=== PATIENT | male | born 1960 | race Caucasian/White ===

== ENCOUNTER → 2020-09-05 | Outpatient (CLI) | payer BC ==
[2020-09-05 15:32] LABS: Basophils # (A) 0.06 X 10*3/uL (0.00-0.10); Eosinophils # (A) 0.18 X 10*3/uL (0.04-0.35); Eosinophils % (A) 2.9 %; HCT 50.2 % (39.6-50.0); HGB 16.6 g/dL (13.0-17.0); Lymphocytes % (A) 27.7 %; MCH 30.8 pg (27.0-32.0); MCHC 33.1 g/dL (32.0-37.0); MCV 93.1 fL (80.0-97.0); Mean Platelet Volume 10.2 fL (9.5-12.2); Monocytes # (A) 0.58 X 10*3/uL (0.20-1.00); Monocytes % (A) 9.4 %; Neutrophils # (A) 3.59 X 10*3/uL (1.80-7.70); Neutrophils % (A) 58.5 %; Platelet Count 271 X 10*3/uL (140-440); RBC 5.39 X 10*6/uL (4.40-5.60); RDW 12.4 % (11.5-14.5); WBC 6.14 X 10*3/uL (4.50-10.00)
[2020-09-05 16:16] LABS: T4, Free (Free Thyroxine) 1.1 ng/dL (0.80-1.80)
[2020-09-05 16:30] LABS: African American GFR (CKD) 94.4 (60.0-200.0); Albumin/Globulin Ratio 2.17 (1.60-3.17); Anion Gap 7.4 mmol/L (4.00-12.00); Calcium 10.3 mg/dL (8.7-10.3); Carbon Dioxide 27.6 mmol/L (21.6-31.8); Chol/HDL Ratio 3.22; Globulin 2.3 g/dL (1.6-3.3); LDL Cholesterol,Calculated 97.2 mg/dL (0.0-131.0); Non-African American GFR(CKD) 81.4 (60.0-200.0); Prostate Specific Antigen 1.8 ng/mL (0.0-4.5); Total Bilirubin 0.7 mg/dL (0.3-1.2); Total Protein 7.3 g/dL (6.2-8.2); VLDL Calculation 22.8 mg/dL (5.00-40.00)
[2020-09-05 17:37] LABS: Hemoglobin A1C 5.8 % (4.0-6.0)
== END | disposition home or self-care (01) ==
LOC: LABWHC1 07:52
PROVIDERS: ATTEND Internal Medicine Geriatric Medicine
DX: E78.2 Mixed hyperlipidemia (principal); I49.8 Other specified cardiac arrhythmias; R79.9 Abnormal finding of blood chemistry, unspecified; N40.0 Benign prostatic hyperplasia without lower urinary tract symptoms; E03.9 Hypothyroidism, unspecified; E55.9 Vitamin D deficiency, unspecified
CPT/HCPCS: 36415; 80053; 80061; 82306; 83036; 84153; 84439; 84443; 85025

== ENCOUNTER 2021-03-29 10:38 | Observation (INO) | payer BC ==
[2021-03-29 11:04] LABS: Glucose,Whole Blood 108 mg/dL (75-99)
[2021-03-29] MEDS ORDERED: SODIUM CHLORIDE 0.9% 500 ML 500 ML IV STA (11:06)
--- NOTE | 2021-03-29 11:20 | ED ---
General Adult HPI - General Chief complaint: Altered Mental Status Stated complaint: Difficulty Remembering Things Time Seen by Provider: 03/29/21 11:00 Source: patient, family, RN notes reviewed, old records reviewed Mode of arrival: ambulatory Limitations: no limitations - History of Present Illness Initial comments: This is a 61-year-old male who presents emergency department because he has lost her short-term memory of the day. The last time he was seen normal was on the phone with his fianc at about 10:00 last night. Patient came to the office today at about 9:00 and according to staff there he was immediately forgetful of all short-term memory. Patient self wasn't aware of this and did not want initially go to the emergency department. Patient denies any headache patient denies chest pain palpitations difficulty breathing first breath per patient denies any numbness or weakness. Patient cannot remember the month but doesn't remember the year. Patient does not remember what he did last evening he does not remember speaking with his physician this morning even though staff indicates that he did. Patient states aside from not being able to remember what was going on recently he feels completely at his baseline. - Related Data Home Medications Medication Instructions Recorded Confirmed Beclomethasone Dipropionate [Qvar 1 puff INHALATION BID PRN 12/02/14 03/29/21 80 mcg/puff] Simvastatin [Zocor] 20 mg PO DAILY 12/02/14 03/29/21 lisinopriL [Prinivil] 20 mg PO DAILY 12/02/14 03/29/21 Allergies Allergy/AdvReac Type Severity Reaction Status Date / Time amoxicillin trihydrate AdvReac Unknown COLITIS Verified 03/29/21 11:39 [From Augmentin] potassium clavulanate AdvReac Unknown COLITIS Verified 03/29/21 11:39 [From Augmentin] Review of Systems ROS Statement: Those systems with pertinent positive or pertinent negative responses have been documented in the HPI. ROS Other: All systems not noted in ROS Statement are negative. Past Medical History Past Medical History: Asthma, Hyperlipidemia, Hypertension Additional Past Medical History / Comment(s): STATES COLITIS WITH AUGMENTIN, HX OF COLON POLYPS., RINGING IN EARS. History of Any Multi-Drug Resistant Organisms: None Reported Past Surgical History: Adenoidectomy, Heart Catheterization, Tonsillectomy Additional Past Surgical History / Comment(s): T & A ( A CHILD), COLONOSCOPY Past Anesthesia/Blood Transfusion Reactions: No Reported Reaction, Motion Sickness Additional Past Anesthesia/Blood Transfusion Reaction / Comment(s): STATES HE WOKE UP DURING TONISLLECTOMY . Past Psychological History: No Psychological Hx Reported Past Alcohol Use History: Occasional Past Drug Use History: None Reported - Past Family History Mother Family Medical History: Cancer Sister(s) Family Medical History: Cancer Additional Family Medical History / Comment(s): LEUKEMIA General Exam - General Exam Comments Initial Comments: GENERAL: Patient is well-developed and well-nourished. Patient is nontoxic and well- hydrated and is in no acute distress. ENT: Neck is soft and supple. No significant lymphadenopathy is noted. Oropharynx is clear. Moist mucous membranes. Neck has full range of motion without eliciting any pain. EYES: The sclera were anicteric and conjunctiva were pink and moist. Extraocular movements were intact and pupils were equal round and reactive to light. Eyelids were unremarkable. PULMONARY: Unlabored respirations. Good breath sounds bilaterally. No audible rales rhonchi or wheezing was noted. CARDIOVASCULAR: There is a regular rate and rhythm without any murmurs gallops or rubs. ABDOMEN: Soft and nontender with normal bowel sounds. SKIN: Skin is clear with no lesions or rashes and otherwise unremarkable. NEUROLOGIC: Patient is alert and oriented 2 patient does not know the month. Cranial nerves II through XII are grossly intact. Motor and sensory are also intact. Normal speech, volume and content. Symmetrical smile. Patient cannot remember what he did this morning or last night. NH is 1 MUSCULOSKELETAL: Normal extremities with adequate strength and full range of motion. No lower extremity swelling or edema. No calf tenderness. LYMPHATICS: No significant lymphadenopathy is noted PSYCHIATRIC: Normal psychiatric evaluation. Limitations: no limitations Course Vital Signs 03/29/21 03/29/21 03/29/21 10:45 10:55 11:00 Temperature 97.9 F Pulse Rate 82 76 71 Respiratory 18 15 16 Rate Blood Pressure 184/103 193/107 O2 Sat by Pulse 96 99 99 Oximetry 03/29/21 03/29/21 03/29/21 11:15 11:20 11:30 Temperature Pulse Rate 75 77 72 Respiratory 16 16 17 Rate Blood Pressure 184/100 178/91 178/91 O2 Sat by Pulse 99 16 L 98 Oximetry 03/29/21 03/29/21 03/29/21 11:45 12:00 12:15 Temperature Pulse Rate 71 70 71 Respiratory 16 11 L 15 Rate Blood Pressure 168/93 168/93 167/90 O2 Sat by Pulse 99 97 99 Oximetry Medical Decision Making - Medical Decision Making EKG shows normal sinus rhythm at 85 bpm VA interval is 168 QRSs 152 QT interval 400 QTC is 476. Patient's EKG shows no ST segment elevation or depression. Patient EKG shows a right bundle branch block I called a code stroke as soon as I saw the patient and determined that his symptoms started within 24 hours of his arrival. I spoke with Dr. Francis he was in agreement and no TPA will be ordered. Patient's CT of the brain shows no acute abnormality. Patient's CTA of the head and neck is normal as well Chest x-ray shows no acute abnormality. I spoke with Dr. Cortez she agreed to admit the patient admitted the patient wrote admitting orders. - Lab Data Result diagrams: 03/29/21 11:07 03/29/21 11:07 Lab Results 03/29/21 03/29/21 03/29/21 Range/Units 11:03 11:07 11:07 WBC 6.7 (3.8-10.6) k/uL RBC 5.25 (4.30-5.90) m/uL Hgb 16.7 (13.0-17.5) gm/dL Hct 49.5 (39.0-53.0) % MCV 94.2 (80.0-100.0) fL MCH 31.8 (25.0-35.0) pg MCHC 33.8 (31.0-37.0) g/dL RDW 12.9 (11.5-15.5) % Plt Count 267 (150-450) k/uL MPV 6.6 Neutrophils % 73 % Lymphocytes % 16 % Monocytes % 6 % Eosinophils % 1 % Basophils % 1 % Neutrophils # 4.9 (1.3-7.7) k/uL Lymphocytes # 1.1 (1.0-4.8) k/uL Monocytes # 0.4 (0-1.0) k/uL Eosinophils # 0.1 (0-0.7) k/uL Basophils # 0.1 (0-0.2) k/uL PT 10.3 (9.0-12.0) sec INR 1.0 (<1.2) APTT 23.5 (22.0-30.0) sec Sodium (137-145) mmol/L Potassium (3.5-5.1) mmol/L Chloride (98-107) mmol/L Carbon Dioxide (22-30) mmol/L Anion Gap mmol/L BUN (9-20) mg/dL Creatinine (0.66-1.25) mg/dL Est GFR (CKD-EPI)AfAm (>60 ml/min/1.73 sqM) Est GFR (CKD-EPI)NonAf (>60 ml/min/1.73 sqM) Glucose (74-99) mg/dL POC Glucose (mg/dL) 108 H (75-99) mg/dL POC Glu Respiratory Clinician ID Remington Maza Calcium (8.4-10.2) mg/dL Total Bilirubin (0.2-1.3) mg/dL AST (17-59) U/L ALT (4-49) U/L Alkaline Phosphatase (38-126) U/L Troponin I (0.000-0.034) ng/mL Total Protein (6.3-8.2) g/dL Albumin (3.5-5.0) g/dL 03/29/21 03/29/21 Range/Units 11:07 11:07 WBC (3.8-10.6) k/uL RBC (4.30-5.90) m/uL Hgb (13.0-17.5) gm/dL Hct (39.0-53.0) % MCV (80.0-100.0) fL MCH (25.0-35.0) pg MCHC (31.0-37.0) g/dL RDW (11.5-15.5) % Plt Count (150-450) k/uL MPV Neutrophils % % Lymphocytes % % Monocytes % % Eosinophils % % Basophils % % Neutrophils # (1.3-7.7) k/uL Lymphocytes # (1.0-4.8) k/uL Monocytes # (0-1.0) k/uL Eosinophils # (0-0.7) k/uL Basophils # (0-0.2) k/uL PT (9.0-12.0) sec INR (<1.2) APTT (22.0-30.0) sec Sodium 141 (137-145) mmol/L Potassium 4.5 (3.5-5.1) mmol/L Chloride 109 H (98-107) mmol/L Carbon Dioxide 23 (22-30) mmol/L Anion Gap 9 mmol/L BUN 16 (9-20) mg/dL Creatinine 1.00 (0.66-1.25) mg/dL Est GFR (CKD-EPI)AfAm >90 (>60 ml/min/1.73 sqM) Est GFR (CKD-EPI)NonAf 81 (>60 ml/min/1.73 sqM) Glucose 114 H (74-99) mg/dL POC Glucose (mg/dL) (75-99) mg/dL POC Glu Respiratory Clinician ID Calcium 10.7 H (8.4-10.2) mg/dL Total Bilirubin 0.6 (0.2-1.3) mg/dL AST 42 (17-59) U/L ALT 51 H (4-49) U/L Alkaline Phosphatase 86 (38-126) U/L Troponin I <0.012 (0.000-0.034) ng/mL Total Protein 7.6 (6.3-8.2) g/dL Albumin 4.7 (3.5-5.0) g/dL Critical Care Time Critical Care Time: Yes Total Critical Care Time: 35 Disposition Clinical Impression: Transient global amnesia, CVA (cerebral vascular accident) Disposition: ADMITTED IP TO THIS [facility] Referrals: Jus Unger MD [Primary Care Provider] - 1-2 days Time of Disposition: 13:39
--- NOTE | 2021-03-29 11:23 | CT ---
EXAMINATION TYPE: CT brain wo con for TPA DATE OF EXAM: 03/29/2021 COMPARISON: None HISTORY: confusion CT DLP: 1183.[address] of the brain was performed. The ventricles, basal cisterns and sulci overlying the cerebral convexities demonstrate mild enlargem ent. There is no evidence for intracranial hemorrhage or sulcal effacement. There is decreased attenuation about the periventricular white matter and deep white matter of both c erebral hemispheres, compatible with chronic small vessel ischemia. Differential diagnosis does inclu de demyelination. No mass effects are seen.No midline shift. Osseous calvarium is intact. If symptoms persist consider MRI. IMPRESSION: 1. Age related atrophic and chronic small vessel ischemic change without acute intracranial process s een at this time.
[2021-03-29 11:31] LABS: Basophils # (A) 0.1 k/uL (0-0.2); Basophils % (A) 1 %; Eosinophils # (A) 0.1 k/uL (0-0.7); Eosinophils % (A) 1 %; HCT 49.5 % (39.0-53.0); HGB 16.7 gm/dL (13.0-17.5); Lymphocytes # (A) 1.1 k/uL (1.0-4.8); Lymphocytes % (A) 16 %; MCH 31.8 pg (25.0-35.0); MCHC 33.8 g/dL (31.0-37.0); MCV 94.2 fL (80.0-100.0); Mean Platelet Volume 6.6; Monocytes # (A) 0.4 k/uL (0-1.0); Monocytes % (A) 6 %; Neutrophils # (A) 4.9 k/uL (1.3-7.7); Neutrophils % (A) 73 %; Platelet Count 267 k/uL (150-450); RBC 5.25 m/uL (4.30-5.90); RDW 12.9 % (11.5-15.5); WBC 6.7 k/uL (3.8-10.6)
[2021-03-29 11:40] LABS: ALT 51 U/L (4-49); AST 42 U/L (17-59); African American GFR (CKD) >90 (>60 ml/min/1.73 sqM); Albumin 4.7 g/dL (3.5-5.0); Alkaline Phosphatase 86 U/L (38-126); Anion Gap 9 mmol/L; Blood Urea Nitrogen 16 mg/dL (9-20); Calcium 10.7 mg/dL (8.4-10.2); Carbon Dioxide 23 mmol/L (22-30); Chloride 109 mmol/L (98-107); Glucose 114 mg/dL (74-99); Non-African American GFR(CKD) 81 (>60 ml/min/1.73 sqM); Potassium 4.5 mmol/L (3.5-5.1); Sodium 141 mmol/L (137-145); Total Bilirubin 0.6 mg/dL (0.2-1.3); Total Protein 7.6 g/dL (6.3-8.2)
[2021-03-29 11:52] LABS: Partial Thromboplastin Time 23.5 sec (22.0-30.0); Prothrombin Time 10.3 sec (9.0-12.0)
--- NOTE | 2021-03-29 12:41 | CT ---
EXAMINATION TYPE: CT angio head neck DATE OF EXAM: 03/29/2021 COMPARISON: CT brain same day HISTORY: 61-year-old male Confusion TECHNIQUE: Contiguous axial scanning of the had a neck performed with IV Contrast, patient injected w ith 65 mL of Isovue 370. Coronal/sagittal MIP reconstructions performed. 3-D reconstructions generate d on a dedicated independent workstation. CT DLP: 549.9 mGycm Automated exposure control for dose reduction was used. FINDINGS: Neck: Bovine configuration to the aortic arch. The vertebral artery origins are patent. The vessels are codominant and patent throughout their cours e. The right common and right internal carotid arteries are patent. The left common and left internal carotid arteries are widely patent. NASCET criteria was utilized. Incidental prominent 9 mm left-sided suboccipital lymph node probably reactive. Head: The vertebral and basilar arteries are patent as is the remainder of the posterior circulation. The internal carotid arteries and remainder of the anterior circulation. The dural venous sinuses are patent. IMPRESSION: 1. NECK: WIDELY PATENT VERTEBRAL AND CAROTID ARTERIES OF THE NECK. 2. HEAD: NO LARGE VESSEL INTRACRANIAL ARTERIAL OCCLUSION, SIGNIFICANT STENOSIS, OR ANEURYSMAL CHANGE IS SEEN.
[2021-03-29] MEDS ORDERED: FLUTICASONE 110 MCG INHALER INHALATION PRN (13:38)
--- NOTE | 2021-03-29 16:56 | P.HPIM ---
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 The staff got worried and called his girlfriend who asked the patient to come to the hospital. Patient did not want to go to the hospital and thought he was doing okay. He was brought in to the hospital and was found to have no recall of the events that made him come to the hospital. Patient was last normal at 10 PM in the night when he had a conversation with his fiance. code stroke was called Patient Code stroke was called but since the events started within 24 hours of arrival, no TPA was indicated. Chest x-ray was negative for acute abnormality. Labs were reviewed, CBC suggestive WBC of 6.7 hemoglobin 16.7 sodium 141 potassium 4.5 chloride 109 BUN 16 creatinine 1.0 glucose 114. Vitals reviewed patient is a afebrile, pulse 72 respiratory rate 17 and blood pressure 178/91 oxygen saturation 99% on room air . CT head and CT angiogram was negative for any acute abnormality Patient was evaluated in the ER with girlfriend at bedside. Patient is having normal conversation but has no recall how he came to the ER and if he had underwent any imaging. Patient could not recall the month or the year. Speech is clear. He denies any facial drooping denies any numbness or tingling in the lower extremities. Patient denies any previous episodes. He denies any seizure-like activity. Patient denies any new activity. Denies any recent activity in the pool or [place]. He denies any neck stiffness or tremors. Patient denies any family history of neurological disorders. He denies any history of stroke in the past. Denies any history of seizures in the past. Denies any fever or chills. Denies any insect bite or camping outside. Patient has been taking nicotinamide 300 mg a day for the past 2 years with no side effects. He denies any change in his medication lately. Neurology is consulted. EEG is ordered. ROS Constitutional: Denies chills, Denies fever, Denies lethargy, Denies malaise, Denies poor appetite, Denies weakness, Denies weight loss Eyes: denies decreased vision, denies diplopia, denies discharge, denies pain Ears: deny: decreased hearing Ears, nose, mouth and throat: Denies dental pain, Denies headache, Denies nasal discharge, Denies nose pain Cardiovascular: Denies chest pain, Denies decreased exercise tolerance, Denies edema, Denies high blood pressure, Denies irregular heart beat, Denies palpitations, Denies paroxysmal nocturnal dyspnea, Denies rapid heart beat, Denies shortness of breath Respiratory: Denies congestion, Denies cough, Denies cough with sputum, Denies dyspnea, Denies home oxygen, Denies wheezing Gastrointestinal: Denies abdominal pain, Denies change in bowel habits, Denies coffee ground emesis, Denies early satiety, Denies excessive gas, Denies heartburn, Denies hematemesis, Denies hematochezia, Denies loss of appetite, Denies nausea, Denies vomiting Genitourinary: Denies dysuria, Denies flank pain, Denies kidney stones, Denies menorrhagia, Denies urgency, Denies urinary frequency Musculoskeletal: Denies gait dysfunction, Denies limitation of motion, Denies morning stiffness, Denies muscle cramps Integumentary: Denies rash, Denies wounds, Denies brittle nails, Denies change in hair/nails, Denies darkening of skin Neurological: Denies balance difficulties, Denies change in speech, Denies double vision, Denies gait dysfunction, Denies loss of vision, Denies motor disturbance, Denies numbness, Denies paralysis, Denies paresthesias, Denies seizures Psychiatric: Denies anxiety, Denies depression Endocrine: Denies excessive sweating, Denies excessive thirst, Denies high blood sugars, Denies palpitations Hematologic/Lymphatic: Denies easy bruising, Denies lymphadenopathy Social history Patient lives by himself. Nonsmoker. Nondrinker no marijuana abuse Family history Father from renal failure 3-4 years ago Mother - breast cancer in 89 years old Has no brother One sister has CML requiring bone marrow transplantation Another sister no medical problem No children Physical exam - Constitutional General appearance: cooperative, no acute distress, appears stated age - EENT Eyes: anicteric sclerae, PERRLA, normal appearance no nystagmus ENT: hearing grossly normal - Neck Neck: no lymphadenopathy, normal ROM, no other, no rigidity, no stridor, no thyromegaly - Respiratory Respiratory: bilateral: CTA, negative: diminished, dullness, rales, rhonchi - Cardiovascular Rhythm: regular Heart sounds: normal: S1, S2 Abnormal Heart Sounds: no systolic murmur, no diastolic murmur, no rub, no S3 Gallop, no S4 Gallop, no click, no other - Gastrointestinal General gastrointestinal: normal bowel sounds, soft nontender - Integumentary Integumentary: no rash - Neurologic Neurologic: CNII-XII intact no sensory or motor deficit noted [id number] test negative - Musculoskeletal Musculoskeletal: gait not assessed, strength equal bilaterally - Psychiatric Psychiatric: A&O x's 3, appropriate affect Assessment and plan #1 transient global amnesia with metabolic encephalopathy. EEG ordered. CT head and CT angiogram head and neck was negative for acute abnormality. MRI ordered to rule out embolic stroke. Echo with bubble study ordered. Continue telemetry. We will start patient on aspirin and Lipitor neurology consulted. B12, folic acid, HbA1c ordered #2 asthma controlled on Qvar #3 hypertension continue lisinopril 20 mg by mouth daily. Blood pressure is high we will start patient's home medication and adjust if needed. Follow low cholesterol low salt diet. Heart healthy diet #4 hyperlipidemia. Zocor switched to atorvastatin 40 mg by mouth daily #5 code status full code #6 DVT prophylaxis with heparin every 12 #7 disposition patient need 1-2 inpatient nights for stabilization Past Medical History Past Medical History: Asthma, Hyperlipidemia, Hypertension Additional Past Medical History / Comment(s): STATES COLITIS WITH AUGMENTIN, HX OF COLON POLYPS., RINGING IN EARS. History of Any Multi-Drug Resistant Organisms: None Reported Past Surgical History: Adenoidectomy, Heart Catheterization, Tonsillectomy Additional Past Surgical History / Comment(s): T & A ( A CHILD), COLONOSCOPY Past Anesthesia/Blood Transfusion Reactions: No Reported Reaction, Motion Sickness Additional Past Anesthesia/Blood Transfusion Reaction / Comment(s): STATES HE WOKE UP DURING TONISLLECTOMY . Past Psychological History: No Psychological Hx Reported Smoking Status: Never smoker Past Alcohol Use History: Occasional Past Drug Use History: None Reported - Past Family History Mother Family Medical History: Cancer Sister(s) Family Medical History: Cancer Additional Family Medical History / Comment(s): LEUKEMIA Medications and Allergies Home Medications Medication Instructions Recorded Confirmed Type Beclomethasone Dipropionate [Qvar 1 puff INHALATION BID PRN 12/02/14 03/29/21 History 80 mcg/puff] Simvastatin [Zocor] 20 mg PO DAILY 12/02/14 03/29/21 History lisinopriL [Prinivil] 20 mg PO DAILY 12/02/14 03/29/21 History Allergies Allergy/AdvReac Type Severity Reaction Status Date / Time amoxicillin trihydrate AdvReac Unknown COLITIS Verified 03/29/21 11:39 [From Augmentin] potassium clavulanate AdvReac Unknown COLITIS Verified 03/29/21 11:39 [From Augmentin] Physical Exam Vitals: Vital Signs Temp Pulse Pulse Resp BP BP Pulse Ox 03/29/21 15:41 97.9 F 70 18 163/99 97 03/29/21 12:15 71 15 167/90 99 03/29/21 12:00 70 11 L 168/93 97 03/29/21 11:45 71 16 168/93 99 03/29/21 11:30 72 17 178/91 98 03/29/21 11:20 77 16 178/91 16 L 03/29/21 11:15 75 16 184/100 99 03/29/21 11:00 71 16 193/107 99 03/29/21 10:55 76 15 99 03/29/21 10:45 97.9 F 82 18 184/103 96 Intake and Output 03/29/21 03/29/21 03/29/21 06:59 14:59 22:59 Other: Weight 92.986 kg Results CBC & Chem 7: 03/29/21 11:07 03/29/21 11:07 Labs: Abnormal Lab Results - Last 24 Hours (Table) 03/29/21 03/29/21 Range/Units 11:03 11:07 Chloride 109 H (98-107) mmol/L Glucose 114 H (74-99) mg/dL POC Glucose (mg/dL) 108 H (75-99) mg/dL Calcium 10.7 H (8.4-10.2) mg/dL ALT 51 H (4-49) U/L Thrombosis Risk Factor Assmnt - Choose All That Apply Each Risk Factor Represents 2 Points: Age 61-74 years Thrombosis Risk Factor Assessment Total Risk Factor Score: 2 Thrombosis Risk Factor Assessment Level: Low Risk
[2021-03-29] MEDS: lisinopriL 20 MG TAB PO SCH (17:37)
[2021-03-29] MEDS: ATORVASTATIN 40 MG TAB PO SCH (17:37)
[2021-03-29] MEDS: ASPIRIN 81 MG PO SCH (17:37)
--- NOTE | 2021-03-29 22:00 | MR ---
EXAMINATION TYPE: MR brain wo/w con DATE OF EXAM: 03/29/2021 COMPARISON: CT brain 03/29/2021 HISTORY: Transient global amnesia. TECHNIQUE: Multiplanar, multisequence images of the brain and brainstem is performed without and with IV contras t, utilizing 9 mL intravenous Gadavist . FINDINGS: Diffusion weighted images demonstrate no evidence of a recent infarct or other diffusion ab normality. There is no extra-axial fluid collection or significant white matter signal abnormality. The ventricular system and cisternal spaces are normal in size and appearance. The brain volume is age appropriate. Midline structures demonstrate normal morphology. The craniocervical junction appears within normal limits. Post contrast images demonstrate no abnormal enhancement. The dural venous sinuses appear pa tent. Globes are grossly symmetric. Mucosal retention cyst versus polyp in the right maxillary sinus. There is mild fluid in the right mastoid air cells. IMPRESSION: No acute infarction or intracranial mass.
[2021-03-30 03:18] LABS: Hemoglobin A1C 5.7 % (4.0-6.0)
[2021-03-30 04:05] LABS: Folate, Serum >24.0 ng/mL
--- NOTE | 2021-03-30 07:25 | ECHOF ---
Referral Reason:with bubble study MEASUREMENTS -------- HEIGHT: 177.8 cm WEIGHT: 93.0 kg BP: IVSd: 1.2 cm (0.6 - 1.1) LVIDd: 5.0 cm (3.9 - 5.3) LVPWd: 1.4 cm (0.6 - 1.1) IVSs: 1.9 cm LVIDs: 1.8 cm LVPWs: 1.8 cm Ao Diam: 3.2 cm (2.0 - 3.7) AV Cusp: 1.8 cm (1.5 - 2.6) LA Diam: 2.5 cm (2.7 - 3.8) MV EXCURSION: 15.243 mm (> 18.000) MV EF SLOPE: 47 mm/s (70 - 150) EPSS: 1.2 cm MV E Jd: 0.44 m/s MV DecT: 271 ms MV A Jd: 0.63 m/s MV E/A Ratio: 0.71 AV maxP.66 mmHg AV meanP.52 mmHg RAP: 5.00 mmHg RVSP: 8.32 mmHg FINDINGS -------- This was a technically difficult study with suboptimal views. The left ventricular size is normal. Left ventricular wall thickness is normal. Overall left vent ricular systolic function is normal with, an EF between 55 - 60 %. The right ventricle is normal in size. The left atrial size is normal. The right atrial size is normal. 5.0mg of Lumason was utilized for enhancement of images IAS not well Visualized. Bubble study not performed, poor images The aortic valve is trileaflet and appears structurally normal. The mitral valve is normal. There is trace mitral regurgitation. The tricuspid valve appears structurally normal. Trace tricuspid regurgitation present. Right [place]ver tricular systolic pressure is normal at < 35 mmHg. There is no pulmonic regurgitation present. The aortic root size is normal. IVC Not well visulized. There is no pericardial effusion. CONCLUSIONS -------- 1. The left ventricular size is normal. 2. Left ventricular wall thickness is normal. 3. Overall left ventricular systolic function is normal with, an EF between 55 - 60 %. 4. There is trace mitral regurgitation. 5. Trace tricuspid regurgitation present. 6. There is no pericardial effusion. PLUMBERS AND TOP HELPERS: Sharon Callahan [facility]
[2021-03-30] MEDS: ASPIRIN 81 MG PO SCH (08:22)
[2021-03-30] MEDS: lisinopriL 20 MG TAB PO SCH (08:23)
[2021-03-30] MEDS: ATORVASTATIN 40 MG TAB PO SCH ×2 (08:23→08:25)
[2021-03-30] MEDS ORDERED: lisinopriL 20 MG TAB PO SCH (09:00)
[2021-03-30] MEDS ORDERED: CYANOCOBALAMIN 1,000 MCG/ML 1 ML VIAL IM ONE ×2 (09:27→11:45)
--- NOTE | 2021-03-30 09:29 | P.CNNES ---
History of Present Illness Consult date: 03/29/21 Requesting physician: Ceferino Rubin Reason for Consult: CVA versus transient global amnesia History of Present Illness: Patient is a 61-year-old male came to the hospital today at 10:38 AM for memory loss. History provided by the patient as well as his significant other, who was also present today. Patient states that he remembers driving to work at 7:30 AM this morning and then he does not remember what happens next until he became aware that he was in the ER. This is about 3 hours of loss of memory. As per report from patient's workplace, he came in work, seems confused. 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 Later he did not remember seeing that. He asked probably 50 times more day it was in the date. He had no memory of the time he had spent with his significant other over the weekend. He could not remember the date or the month. 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 Patient's coworker brought him to the ER. Patient did not have any slurred speech facial droop, headache subsequently. Patient's vital signs on arrival blood pressure 184/103, pulse rate 82, temperature 97.9. Patient's blood pressure has been running high 178/91. CT head showed age-related atrophic and chronic small vessel ischemic change without acute intracranial process seen at this time. CTA of the neck shows widely patent vertebral and carotid arteries of the neck. CTA of the head showed no large vessel intracranial arterial occlusion, significant stenosis or aneurysmal change. EKG shows normal sinus rhythm. Right bundle branch block. Blood test shows normal CBC, PT/PTT, normal Chem-7. AST is 42, ALT is 51. Troponin is negative. Thyroid functions are normal as of 09/05/2020. Patient's lipid panel with cholesterol 174, LDL 97.2, HDL 54 and triglycerides 114. Hemoglobin A1c 5.8 on 09/05/2020. Patient's home medications include Zocor 20 mg, lisinopril 20 mg. Patient has history of hypertension since 1994, denies diabetes or tobacco use. He drinks wine once in a while. Not a heavy drinker. Patient apparently has migraines, as he gets migraines periodically, which are very severe, and he usually can feel it coming on and he takes ibuprofen at headache onset. If he does not take ibuprofen early on, he gets a full-blown headache with nausea. He has not had migraine for last 3-4 weeks. He never has any history of migraine aura. Review of Systems Completely unremarkable. No chest pain shortness of breath wheezing or cough. Denies any nausea vomiting diarrhea. Denies any problem with the vision, hoarseness, sore throat, dysphagia, rash. No weight loss. No fever or chills. No vertigo. Patient does have mild memory disturbance sometimes, as he repeats. All other 14 point of review of systems unremarkable. Past Medical History Past Medical History: Asthma, Hyperlipidemia, Hypertension Additional Past Medical History / Comment(s): STATES COLITIS WITH AUGMENTIN, HX OF COLON POLYPS., RINGING IN EARS. History of Any Multi-Drug Resistant Organisms: None Reported Past Surgical History: Adenoidectomy, Heart Catheterization, Tonsillectomy Additional Past Surgical History / Comment(s): T & A ( A CHILD), COLONOSCOPY Past Anesthesia/Blood Transfusion Reactions: No Reported Reaction, Motion Sickness Additional Past Anesthesia/Blood Transfusion Reaction / Comment(s): STATES HE WOKE UP DURING TONISLLECTOMY . Past Psychological History: No Psychological Hx Reported Smoking Status: Never smoker Past Alcohol Use History: Occasional Past Drug Use History: None Reported - Past Family History Mother Family Medical History: Cancer Sister(s) Family Medical History: Cancer Additional Family Medical History / Comment(s): LEUKEMIA Medications and Allergies Home Medications Medication Instructions Recorded Confirmed Type Beclomethasone Dipropionate [Qvar 1 puff INHALATION BID PRN 12/02/14 03/29/21 History 80 mcg/puff] Simvastatin [Zocor] 20 mg PO DAILY 12/02/14 03/29/21 History lisinopriL [Prinivil] 20 mg PO DAILY 12/02/14 03/29/21 History Allergies Allergy/AdvReac Type Severity Reaction Status Date / Time amoxicillin trihydrate AdvReac Unknown COLITIS Verified 03/29/21 11:39 [From Augmentin] potassium clavulanate AdvReac Unknown COLITIS Verified 03/29/21 11:39 [From Augmentin] Physical Examination - Vital Signs Vital Signs: Vital Signs Temp Pulse Pulse Resp BP BP Pulse Ox 03/29/21 15:41 97.9 F 70 18 163/99 97 03/29/21 12:15 71 15 167/90 99 03/29/21 12:00 70 11 L 168/93 97 03/29/21 11:45 71 16 168/93 99 03/29/21 11:30 72 17 178/91 98 03/29/21 11:20 77 16 178/91 16 L 03/29/21 11:15 75 16 184/100 99 03/29/21 11:00 71 16 193/107 99 03/29/21 10:55 76 15 99 03/29/21 10:45 97.9 F 82 18 184/103 96 Intake and Output 03/29/21 03/29/21 03/29/21 06:59 14:59 22:59 Other: Weight 92.986 kg Patient is a middle aged occasion male, in no acute distress. Patient is alert awake well oriented, except for the date, as he thought it was March 12 and the year is 2020. He knows the day of the week the season and that he is in [facility] in [place]. Speech and language functions are normal. Patient can name and repeat. No aphasia or dysarthria. Attention, concentration and fund of knowledge is adequate. On cranial examination, pupils are round and reacting to light, visual landry are full on confrontation, extraocular muscles are intact with no nystagmus. Face is symmetric, tongue protrudes to the midline. Palatal elevation and sensation normal, hearing and shoulder shrug normal, facial sensation normal. Shoulder shrug normal. On muscle strength testing, there is no pronator drift and the strength is normal in arms and legs distally and proximally. Deep tendon reflexes are 1+ to 2+ and plantars downgoing. Sensory to touch is equal with no neglect. Cerebellar function showed no ataxia for [id number] testing. No dysdiadochokinesia. Tone and bulk of muscles normal. Gait normal. On general examination, there is no carotid bruit or murmur, S1-S2 audible. Abdomen is soft nontender. Chest is clear. Peripheral pulses are present. Mild peripheral edema. Results - Laboratory Findings CBC and BMP: 03/29/21 11:07 03/29/21 11:07 Abnormal Lab Findings: Abnormal Labs 03/29/21 03/29/21 11:03 11:07 Chloride 109 H Glucose 114 H POC Glucose (mg/dL) 108 H Calcium 10.7 H ALT 51 H Assessment and Plan Assessment: * Transient global amnesia. Patient's memory loss lasted for about 3 hours. Patient back to baseline. * Hypertension, not well controlled * Hyperlipidemia Plan: * Patient underwent MRI of the brain with and without contrast, which is normal. No acute process, no CVA. * 2-D echo showed normal left-ventricular size, normal left-ventricular wall thickness, EF is between 55-60%. Trace MR. Suggest checking bubble study, rule out PFO. * We will check EEG to rule out epileptiform activity. * CTA of head and neck is normal. * Hemoglobin A1c 5.7, check lipid panel. * We will check B12, folate. TSH is normal 2.19 on 09/05/2020. * Continue Zocor 20 mg. Start aspirin 81 mg daily. * Aggressive control of blood pressure to target blood pressure <130/80. * Telemetry monitoring to rule out arrhythmia * We will follow clinically.
[2021-03-30 12:50] LABS: Chol/HDL Ratio 4.86; LDL Cholesterol,Calculated 126.6 mg/dL (0.0-131.0); VLDL Calculation 35.4 mg/dL (5.00-40.00)
--- NOTE | 2021-03-30 13:33 | CONS ---
CONSULTATION CHIEF COMPLAINT: CVA. Rule out cardiac source of thromboembolic phenomenon. Rudi is a 61-year-old gentleman with history of hypertension and dyslipidemia who presented to the emergency room with transient loss of memory that lasted for about 4 hours. 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 Gradually his memory has normalized. He underwent extensive workup, including CT scan, CTA, MRI, and the workup is benign and unremarkable. EKG showed sinus rhythm with right bundle branch block. He had an echocardiogram that was technically suboptimal, but the LV function and wall motion were normal. They could not do a bubble study because of the technically suboptimal study. So I have been asked to perform a transesophageal echo. At the time of my evaluation this morning, patient appears comfortable at rest. He seems alert, oriented and intelligent and his memory seems to have normalized. PAST MEDICAL HISTORY: Significant for hypertension and dyslipidemia. MEDICATIONS: Medications include Prinivil 20 daily, Zocor 20 daily, Qvar. ALLERGIES: AUGMENTIN. FAMILY HISTORY: Negative for premature coronary artery disease. SOCIAL HISTORY: Negative for current smoking, EtOH abuse or drug abuse. REVIEW OF SYSTEMS: HEENT is unremarkable. CARDIAC: As described above. RESPIRATORY: Negative. GI: Negative. GENITOURINARY: Negative. ALLERGY/IMMUNOLOGY: Negative. SKIN: Negative. MUSCULOSKELETAL: Negative. ENDOCRINE: Negative. DERMATOLOGY: Negative. CONSTITUTIONAL: Significant for confusion. PSYCHOSOCIAL: Negative. Rest of the system review is not relevant. PHYSICAL EXAMINATION: Comfortable at rest. Afebrile. Heart rate is 60 beats per minute, blood pressure is 143/73, respiratory rate 18. There is no jugular venous distention. Carotid upstroke is normal. There is no bruit. Chest exam reveals good air entry bilaterally. Heart exam reveals first and second heart sounds. No gallop. No murmur. No rub. Abdomen is soft, nontender. Examination of extremities did not reveal any edema. Peripheral pulses are felt. ASSESSMENT: 1. Cerebrovascular accident versus transient global amnesia. Rule out cardiac source of thromboembolic phenomenon. 2. Hypertension. 3. Dyslipidemia. PLAN: I am going to perform a transesophageal echo on him to rule out intracardiac thrombus and shunting across the interatrial septum. MMODL / IJN: [id number] /
--- NOTE | 2021-03-30 13:50 | P.PN ---
Subjective Progress Note Date: 03/30/21 61 years old male patient of Dr. 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 The staff got worried and called his girlfriend who asked the patient to come to the hospital. Patient did not want to go to the hospital and thought he was doing okay. He was brought in to the hospital and was found to have no recall of the events that made him come to the hospital. Patient was last normal at 10 PM in the night when he had a conversation with his fiance. code stroke was called Patient Code stroke was called but since the events started within 24 hours of arrival, no TPA was indicated. Chest x-ray was negative for acute abnormality. Labs were reviewed, CBC suggestive WBC of 6.7 hemoglobin 16.7 sodium 141 potassium 4.5 chloride 109 BUN 16 creatinine 1.0 glucose 114. Vitals reviewed patient is a afebrile, pulse 72 respiratory rate 17 and blood pressure 178/91 oxygen saturation 99% on room air . CT head and CT angiogram was negative for any acute abnormality Patient was evaluated in the ER with girlfriend at bedside. Patient is having normal conversation but has no recall how he came to the ER and if he had underwent any imaging. Patient could not recall the month or the year. Speech is clear. He denies any facial drooping denies any numbness or tingling in the lower extremities. Patient denies any previous episodes. He denies any seizure-like activity. Patient denies any new activity. Denies any recent activity in the pool or [place]. He denies any neck stiffness or tremors. Patient denies any family history of neurological disorders. He denies any history of stroke in the past. Denies any history of seizures in the past. Denies any fever or chills. Denies any insect bite or camping outside. Patient has been taking nicotinamide 300 mg a day for the past 2 years with no side effects. He denies any change in his medication lately. Neurology is consulted. EEG is ordered. 03/30 patient examined bedside. He denies any new symptoms. Patient slept well overnight. He has some blurry vision and some gritty feeling in his eyes. Patient denies any numbness or tingling in his upper and lower extremity. Sher ry is good. He does have history of migraines that affect him every 3-4 months for which patient takes 800 mg of Motrin to help resolve the pain but he denies any recent migraine attacks. Would recommend switching lisinopril to metoprolol succinate for blood pressure control. Patient denies any chest pain or shortness of breath. He is continued on Zocor, neurology and started on aspirin. MRI reviewed. No acute intracranial process noted. Echocardiogram was reviewed was negative for any valvular or wall abnormality EF reported to be 55-60%. Bubble study could not be performed. Cardiology consulted for possible BRENNAN. EEG pending ROS Constitutional: Denies chills, Denies fever, Denies lethargy, Denies malaise, Denies poor appetite, Denies weakness, Denies weight loss Eyes: denies decreased vision, denies diplopia, denies discharge, denies pain Ears: deny: decreased hearing Ears, nose, mouth and throat: Denies dental pain, Denies headache, Denies nasal discharge, Denies nose pain Cardiovascular: Denies chest pain, Denies decreased exercise tolerance, Denies edema, Denies high blood pressure, Denies irregular heart beat, Denies palpitations, Denies paroxysmal nocturnal dyspnea, Denies rapid heart beat, Denies shortness of breath Respiratory: Denies congestion, Denies cough, Denies cough with sputum, Denies dyspnea, Denies home oxygen, Denies wheezing Gastrointestinal: Denies abdominal pain, Denies change in bowel habits, Denies coffee ground emesis, Denies early satiety, Denies excessive gas, Denies heartburn, Denies hematemesis, Denies hematochezia, Denies loss of appetite, Denies nausea, Denies vomiting Genitourinary: Denies dysuria, Denies flank pain, Denies kidney stones, Denies menorrhagia, Denies urgency, Denies urinary frequency Musculoskeletal: Denies gait dysfunction, Denies limitation of motion, Denies morning stiffness, Denies muscle cramps Integumentary: Denies rash, Denies wounds, Denies brittle nails, Denies change in hair/nails, Denies darkening of skin Neurological: Denies balance difficulties, Denies change in speech, Denies double vision, Denies gait dysfunction, Denies loss of vision, Denies motor disturbance, Denies numbness, Denies paralysis, Denies paresthesias, Denies seizures denies any new short-term memory loss Psychiatric: Denies anxiety, Denies depression Endocrine: Denies excessive sweating, Denies excessive thirst, Denies high blood sugars, Denies palpitations Hematologic/Lymphatic: Denies easy bruising, Denies lymphadenopathy Physical exam - Constitutional General appearance: cooperative, no acute distress, appears stated age - EENT Eyes: anicteric sclerae, PERRLA, normal appearance no nystagmus ENT: hearing grossly normal - Neck Neck: no lymphadenopathy, normal ROM, no other, no rigidity, no stridor, no thyr omegaly - Respiratory Respiratory: bilateral: CTA, negative: diminished, dullness, rales, rhonchi - Cardiovascular Rhythm: regular Heart sounds: normal: S1, S2 Abnormal Heart Sounds: no systolic murmur, no diastolic murmur, no rub, no S3 Gallop, no S4 Gallop, no click, no other - Gastrointestinal General gastrointestinal: normal bowel sounds, soft nontender - Integumentary Integumentary: no rash - Neurologic Neurologic: CNII-XII intact no sensory or motor deficit noted [id number] test negative - Musculoskeletal Musculoskeletal: gait normal , strength equal bilaterally - Psychiatric Psychiatric: A&O x's 3, appropriate affect Assessment and plan #1 transient global amnesia with metabolic encephalopathy. EEG ordered. CT head and CT angiogram head and neck was negative for acute abnormality. MRI ordered negative for acute stroke Echo with bubble study was negative but bubble study could not be determined Continue telemetry. Continueon aspirin and Lipitor switched to Zocor. neurology consulted. B12 was low. Transient global amnesia is associated with migraines and hyperlipidemia. For BRENNAN tomorrow. Plan for EEG to #2 asthma controlled on Qvar #3 HTN - hold lisinopril 20 mg by mouth daily. Would recommend switching to metoprolol for benefit on migraines Follow low cholesterol low salt diet. Heart healthy diet #4 hyperlipidemia. Continue Zocor 20 mg by mouth daily #5 code status full code #6 DVT prophylaxis with heparin every 12 Objective - Vital Signs Vital signs: Vital Signs Temp 97.9 F 03/30/21 11:47 Pulse 64 03/30/21 11:47 Resp 18 03/30/21 11:47 BP 143/73 03/30/21 11:47 Pulse Ox 95 03/30/21 11:47 Intake & Output 03/29/21 03/30/21 03/30/21 18:59 06:59 18:59 Weight 92.986 kg 94.347 kg Other: Voiding Method Toilet # Voids 1 - Labs CBC & Chem 7: 03/29/21 11:07 03/29/21 11:07 Labs: Abnormal Lab Results - Last 24 Hours (Table) 03/30/21 Range/Units 07:33 Triglycerides 177.0 H (0.0-149.0) mg/dL Cholesterol 204 H (0-200) mg/dL
--- NOTE | 2021-03-30 15:24 | XR ---
EXAMINATION TYPE: XR chest 2V DATE OF EXAM: 03/29/2021 COMPARISON: NONE HISTORY: Shortness of breath TECHNIQUE: Frontal and lateral views of the chest are obtained. FINDINGS: Scattered senescent parenchymal changes noted. Hyperinflation compatible with COPD. No evidence for infiltrate. No evidence for atelectasis. Heart size is stable. Mediastinal structures are stable and grossly unremarkable. No evidence for hilar prominence. Degenerative changes dorsal spine. IMPRESSION: 1. No evidence for acute pulmonary disease.
[2021-03-30] MEDS ORDERED: METOPROLOL SUCCINATE (ER) 25 MG TAB.ER.24H PO SCH (20:00)
[2021-03-30 22:54] LABS: Appearance,Urine Clear (Clear); Bilirubin,Urine Negative (Negative); Blood,Urine Negative (Negative); Color,Urine Light Yellow; Glucose,Urine (UA) Negative (Negative); Ketones,Urine Negative (Negative); Leukocyte Esterase,Urine Negative (Negative); Nitrite,Urine Negative (Negative); Protein,Urine Negative (Negative); Specific Gravity,Urine 1.018 (1.001-1.035); Urobilinogen,Urine <2.0 mg/dL (<2.0)
[2021-03-31] MEDS ORDERED: BENZOCAINE SPRAY 1 CAN MUCOUS MEM ONE (08:47)
[2021-03-31] MEDS ORDERED: MIDAZOLAM 2 MG/2 ML VIAL IV ONE (08:48)
[2021-03-31] MEDS ORDERED: fentaNYL (PF) 50 MCG/ML 2 ML AMP IV ONE (08:48)
[2021-03-31] MEDS ORDERED: SODIUM CHLORIDE 0.9% 250 ML IV ONE (08:49)
--- NOTE | 2021-03-31 08:57 | P.PN ---
Subjective Progress Note Date: 03/30/21 Patient was seen for a follow-up. Patient's significant other was also present. Patient is doing well, no further symptoms. Patient's telemetry monitoring showing sinus rhythm with sinus bradycardia and sometimes sinus tachycardia. No other arrhythmia. No headaches. No focal symptoms. Objective - Vital Signs Vital signs: Vital Signs Temp 97.6 F 03/31/21 07:51 Pulse 72 03/31/21 08:46 Resp 16 03/31/21 08:46 BP 132/68 03/31/21 08:46 Pulse Ox 96 03/31/21 08:46 Intake & Output 03/30/21 03/31/21 03/31/21 18:59 06:59 18:59 Intake Total 630 480 Output Total 300 300 Balance 330 180 Weight 96.8 kg Intake: Oral 630 480 Output: Urine 300 300 Other: Voiding Method Toilet # Voids 2 - Exam Completely nonfocal. - Labs CBC & Chem 7: 03/29/21 11:07 03/29/21 11:07 Labs: Abnormal Lab Results - Last 24 Hours (Table) 03/30/21 Range/Units 07:33 Triglycerides 177.0 H (0.0-149.0) mg/dL Cholesterol 204 H (0-200) mg/dL Assessment and Plan Assessment: * Transient global amnesia. Patient's memory loss lasted for about 3 hours. Patient back to baseline. * Hypertension, not well controlled * Hyperlipidemia Plan: * Patient underwent MRI of the brain with and without contrast, which is normal. No acute process, no CVA. * 2-D echo showed normal left-ventricular size, normal left-ventricular wall thickness, EF is between 55-60%. Trace MR. Suggest checking bubble study, rule out PFO. * Await EEG to rule out epileptiform activity. * CTA of head and neck is normal. * Hemoglobin A1c 5.7 * Lipid panel with cholesterol 204, LDL 126, HDL 42 and triglycerides 177. Continue statins. * B12 is low 258. We will start B12 replacement, folate > 24.0. TSH is normal 2.19 on 09/05/2020. We will check B6, B1. * Continue Zocor 20 mg. Start aspirin 81 mg daily. * Aggressive control of blood pressure to target blood pressure <130/80. * Telemetry monitoring so far showing sinus rhythm, no other arrhythmia. * Patient and his significant other concern about patient getting Alzheimer's dementia, as it runs in the family. At this time patient is found to have low B12. He needs to be started on B12 replacement. If the memory concerns continue to be an issue, then may suggest follow-up with neurologist as outpatient. * We will follow clinically.
[2021-03-31] MEDS: ASPIRIN 81 MG PO SCH (09:41)
[2021-03-31] MEDS: ATORVASTATIN 40 MG TAB PO SCH (09:41)
--- NOTE | 2021-03-31 10:30 | ECHOT ---
TRANSESOPHAGEAL ECHOCARDIOGRAM INDICATION: CVA. Rule out cardiac source of thromboembolic phenomenon. PROCEDURE NOTE: After obtaining informed consent, transesophageal echocardiogram was performed in left lateral position using an Omniplane probe. Local and IV sedation was obtained using Xylocaine spray, 2 mg of Versed and 50 mcg of fentanyl. The patient tolerated the procedure well without any obvious immediate complications. FINDINGS: 1. There is no intracardiac thrombus within the left atrial appendage, left atrium, right atrium, right ventricle. 2. Left ventricle has normal size and systolic function. 3. Left atrium appears mildly enlarged. 4. Interatrial septum: There is no evidence of [id number] shunt by color-flow Doppler or [id number]-[id number] shunt by agitated saline contrast study. 5. Mitral valve shows trace mitral regurgitation. 6. Tricuspid valve appears normal. 7. Aortic valve is free of stenosis or regurgitation. CONCLUSIONS: Left ventricular systolic function is normal. No intracardiac thrombus. No shunting across the interatrial septum. MMODL / IJN: [id number] /
--- NOTE | 2021-03-31 10:52 | EEG ---
ELECTROENCEPHALOGRAM REPORT DATE OF SERVICE: 03/31/2021 PREAMBLE: This is a 61-year-old male with transient global amnesia. This study is performed to evaluate for any epileptiform activity. EEG FINDINGS: This is a 21-channel routine EEG recording in a patient utilizing 10/20 international system with referential and bipolar montages. Background consists of presence of low- voltage, 8-9 hertz activity seen in bihemispheric region. Intermittent low voltage theta slowing was also seen in bihemispheric region. Background seems to be reactive to eye opening and closing. Photic driving response was seen with some flash frequencies. Hyperventilation was not performed. Different stages of sleep were not seen. No focal or generalized epileptiform activity was seen. EKG channel showed no obvious arrhythmia. IMPRESSION: This is an abnormal EEG due to presence of somewhat diffuse low voltage and with mild slow background activity. This is suggestive of mild encephalopathy, which can be non-specific as to the etiology, although may be seen with toxic metabolic, vascular or degenerative process. No epileptiform activity was seen. No focal slowing was identified. MMODL / IJN: [id number] / MTDD
[2021-03-31 11:08] VITALS: BP 112/63; PULSE 54; RESP 16; TEMP 98.4
[2021-03-31] MEDS ORDERED: CYANOCOBALAMIN 1,000 MCG/ML 1 ML VIAL IM ONE (12:16)
--- NOTE | 2021-03-31 14:39 | P.PN ---
Subjective Progress Note Date: 03/31/21 Patient was seen for a follow-up. Patient's significant other was also present. Patient is doing well, no further symptoms. No headaches. No focal symptoms. Objective - Vital Signs Vital signs: Vital Signs Temp 98.4 F 03/31/21 11:07 Pulse 54 L 03/31/21 11:07 Resp 16 03/31/21 11:07 BP 112/63 03/31/21 11:07 Pulse Ox 98 03/31/21 11:07 Intake & Output 03/30/21 03/31/21 03/31/21 18:59 06:59 18:59 Intake Total 630 480 50 Output Total 300 300 Balance 330 180 50 Weight 96.8 kg Intake: IV 50 Oral 630 480 Output: Urine 300 300 Other: Voiding Method Toilet # Voids 2 1 - Exam Completely nonfocal. - Labs CBC & Chem 7: 03/29/21 11:07 03/29/21 11:07 Labs: Abnormal Lab Results - Last 24 Hours (Table) 03/30/21 Range/Units 07:33 Triglycerides 177.0 H (0.0-149.0) mg/dL Cholesterol 204 H (0-200) mg/dL Assessment and Plan Assessment: * Transient global amnesia. Patient's memory loss lasted for about 3 hours. Patient back to baseline. * Hypertension, not well controlled * Hyperlipidemia * B12 deficiency Plan: * Patient underwent BRENNAN today, which was normal. No embolic source. No left atrial clot. Left-ventricular systolic function normal. No shunt. * EEG was performed, which is mildly abnormal because of diffuse low amplitude activity with mild slowing, suggestive of mild encephalopathy of nonspecific etiology, may be related to metabolic, vascular or degenerative causes. No epileptiform activity was seen. * MRI of the brain with and without contrast, which is normal. No acute process, no CVA. * CTA of head and neck is normal. * Hemoglobin A1c 5.7 * Lipid panel with cholesterol 204, LDL 126, HDL 42 and triglycerides 177. Increase Zocor from 20 mg to 40 mg daily. * B12 is low 258. We will start B12 replacement, folate > 24.0. TSH is normal 2.19 on 09/05/2020. B6 13 (5-50), B1 68 (38-122), MMA 0.23 (<0.40), n icotinamide 30. * Continue aspirin 81 mg daily indefinitely. * Aggressive control of blood pressure to target blood pressure <130/80. Blood pressure is well controlled. * Telemetry monitoring so far showing sinus rhythm, no other arrhythmia. * Patient and his significant other concern about patient getting Alzheimer's dementia, as it runs in the family. At this time patient is found to have low B12. He needs to be started on B12 replacement. If the memory concerns continue to be an issue, then may suggest follow-up with neurologist as outpatient. * Patient clear for discharge from neurology standpoint.
--- NOTE | 2021-03-31 14:46 | P.PN ---
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 The staff got worried and called his girlfriend who asked the patient to come to the hospital. Patient did not want to go to the hospital and thought he was doing okay. He was brought in to the hospital and was found to have no recall of the events that made him come to the hospital. Patient was last normal at 10 PM in the night when he had a conversation with his fiance. code stroke was called Patient Code stroke was called but since the events started within 24 hours of arrival, no TPA was indicated. Chest x-ray was negative for acute abnormality. Labs were reviewed, CBC suggestive WBC of 6.7 hemoglobin 16.7 sodium 141 potassium 4.5 chloride 109 BUN 16 creatinine 1.0 glucose 114. Vitals reviewed patient is a afebrile, pulse 72 respiratory rate 17 and blood pressure 178/91 oxygen saturation 99% on room air . CT head and CT angiogram was negative for any acute abnormality Patient was evaluated in the ER with girlfriend at bedside. Patient is having normal conversation but has no recall how he came to the ER and if he had underwent any imaging. Patient could not recall the month or the year. Speech is clear. He denies any facial drooping denies any numbness or tingling in the lower extremities. Patient denies any previous episodes. He denies any seizure-like activity. Patient denies any new activity. Denies any recent activity in the pool or [place]. He denies any neck stiffness or tremors. Patient denies any family history of neurological disorders. He denies any history of stroke in the past. Denies any history of seizures in the past. Denies any fever or chills. Denies any insect bite or camping outside. Patient has been taking nicotinamide 300 mg a day for the past 2 years with no side effects. He denies any change in his medication lately. Neurology is consulted. EEG is ordered. 03/30 patient examined bedside. He denies any new symptoms. Patient slept well overnight. He has some blurry vision and some gritty feeling in his eyes. Patient denies any numbness or tingling in his upper and lower extremity. Sher ry is good. He does have history of migraines that affect him every 3-4 months for which patient takes 800 mg of Motrin to help resolve the pain but he denies any recent migraine attacks. Would recommend switching lisinopril to metoprolol succinate for blood pressure control. Patient denies any chest pain or shortness of breath. He is continued on Zocor, neurology and started on aspirin. MRI reviewed. No acute intracranial process noted. Echocardiogram was reviewed was negative for any valvular or wall abnormality EF reported to be 55-60%. Bubble study could not be performed. Cardiology consulted for possible BRENNAN. EEG pending 03/31 patient examined bedside. He denies any new symptoms denies any confusion or change in mental status. He had BRENNAN which was normal. EEG was noted to have mild intermittent generalized slowing suggestive of mild encephalopathy. No foci for seizures noted. LDL is 126. Urine was negative for infection. Patient's blood pressure medication switch to metoprolol from lisinopril. Zocor since switched to lisinopril. Patient started on lisinopril. Patient follow with primary care physician and neurologist as outpatient. Vitals are stable ROS Constitutional: Denies chills, Denies fever, Denies lethargy, Denies malaise, Denies poor appetite, Denies weakness, Denies weight loss Eyes: denies decreased vision, denies diplopia, denies discharge, denies pain Ears: deny: decreased hearing Ears, nose, mouth and throat: Denies dental pain, Denies headache, Denies nasal discharge, Denies nose pain Cardiovascular: Denies chest pain, Denies decreased exercise tolerance, Denies edema, Denies high blood pressure, Denies irregular heart beat, Denies palpitations, Denies paroxysmal nocturnal dyspnea, Denies rapid heart beat, Denies shortness of breath Respiratory: Denies congestion, Denies cough, Denies cough with sputum, Denies dyspnea, Denies home oxygen, Denies wheezing Gastrointestinal: Denies abdominal pain, Denies change in bowel habits, Denies coffee ground emesis, Denies early satiety, Denies excessive gas, Denies heartburn, Denies hematemesis, Denies hematochezia, Denies loss of appetite, Denies nausea, Denies vomiting Genitourinary: Denies dysuria, Denies flank pain, Denies kidney stones, Denies menorrhagia, Denies urgency, Denies urinary frequency Musculoskeletal: Denies gait dysfunction, Denies limitation of motion, Denies morning stiffness, Denies muscle cramps Integumentary: Denies rash, Denies wounds, Denies brittle nails, Denies change in hair/nails, Denies darkening of skin Neurological: Denies balance difficulties, Denies change in speech, Denies double vision, Denies gait dysfunction, Denies loss of vision, Denies motor disturbance, Denies numbness, Denies paralysis, Denies paresthesias, Denies seizures denies any new short-term memory loss Psychiatric: Denies anxiety, Denies depression Endocrine: Denies excessive sweating, Denies excessive thirst, Denies high blood sugars, Denies palpitations Hematologic/Lymphatic: Denies easy bruising, Denies lymphadenopathy Physical exam - Constitutional General appearance: cooperative, no acute distress, appears stated age - EENT Eyes: anicteric sclerae, PERRLA, normal appearance no nystagmus ENT: hearing grossly normal - Neck Neck: no lymphadenopathy, normal ROM, no other, no rigidity, no stridor, no thyromegaly - Respiratory Respiratory: bilateral: CTA, negative: diminished, dullness, rales, rhonchi - Cardiovascular Rhythm: regular Heart sounds: normal: S1, S2 Abnormal Heart Sounds: no systolic murmur, no diastolic murmur, no rub, no S3 Gallop, no S4 Gallop, no click, no other - Gastrointestinal General gastrointestinal: normal bowel sounds, soft nontender - Integumentary Integumentary: no rash - Neurologic Neurologic: CNII-XII intact no sensory or motor deficit noted [id number] test negative - Musculoskeletal Musculoskeletal: gait normal , strength equal bilaterally - Psychiatric Psychiatric: A&O x's 3, appropriate affect Assessment and plan #1 transient global amnesia with metabolic encephalopathy. #2 asthma #3 HTN #4 hyperlipidemia. #5 migraine. Switch to metoprolol from lisinopril for migraine prophylaxis Disposition to home for self-care Objective - Vital Signs Vital signs: Vital Signs Temp 98.4 F 03/31/21 11:07 Pulse 54 L 03/31/21 11:07 Resp 16 03/31/21 11:07 BP 112/63 03/31/21 11:07 Pulse Ox 98 03/31/21 11:07 Intake & Output 03/30/21 03/31/21 03/31/21 18:59 06:59 18:59 Intake Total 630 480 230 Output Total 300 300 Balance 330 180 230 Weight 96.8 kg Intake: IV 50 Oral 630 480 180 Output: Urine 300 300 Other: Voiding Method Toilet # Voids 2 1 - Labs CBC & Chem 7: 03/29/21 11:07 03/29/21 11:07
[2021-04-04 09:01] LABS: Methylmalonic Acid 0.23 umol/L (<0.40)
--- NOTE | 2021-04-05 12:12 | P.DS ---
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 The staff got worried and called his girlfriend who asked the patient to come to the hospital. Patient did not want to go to the hospital and thought he was doing okay. He was brought in to the hospital and was found to have no recall of the events that made him come to the hospital. Patient was last normal at 10 PM in the night when he had a conversation with his fiance. code stroke was called Patient Code stroke was called but since the events started within 24 hours of arrival, no TPA was indicated. Chest x-ray was negative for acute abnormality. Labs were reviewed, CBC suggestive WBC of 6.7 hemoglobin 16.7 sodium 141 potassium 4.5 chloride 109 BUN 16 creatinine 1.0 glucose 114. Vitals reviewed patient is a afebrile, pulse 72 respiratory rate 17 and blood pressure 178/91 oxygen saturation 99% on room air . CT head and CT angiogram was negative for any acute abnormality Patient was evaluated in the ER with girlfriend at bedside. Patient is having normal conversation but has no recall how he came to the ER and if he had underwent any imaging. Patient could not recall the month or the year. Speech is clear. He denies any facial drooping denies any numbness or tingling in the lower extremities. Patient denies any previous episodes. He denies any seizure-like activity. Patient denies any new activity. Denies any recent activity in the pool or [place]. He denies any neck stiffness or tremors. Patient denies any family history of neurological disorders. He denies any history of stroke in the past. Denies any history of seizures in the past. Denies any fever or chills. Denies any insect bite or camping outside. Patient has been taking nicotinamide 300 mg a day for the past 2 years with no side effects. He denies any change in his medication lately. Neurology is consulted. EEG is ordered. 03/30 patient examined bedside. He denies any new symptoms. Patient slept well overnight. He has some blurry vision and some gritty feeling in his eyes. Patient denies any numbness or tingling in his upper and lower extremity. Memory is good. He does have history of migraines that affect him every 3-4 months for which patient takes 800 mg of Motrin to help resolve the pain but he denies any recent migraine attacks. Would recommend switching lisinopril to metoprolol succinate for blood pressure control. Patient denies any chest pain or shortness of breath. He is continued on Zocor, neurology and started on aspirin. MRI reviewed. No acute intracranial process noted. Echocardiogram was reviewed was negative for any valvular or wall abnormality EF reported to be 55-60%. Bubble study could not be performed. Cardiology consulted for possible BRENNAN. EEG pending 03/31 patient examined bedside. He denies any new symptoms denies any confusion or change in mental status. He had BRENNAN which was normal. EEG was noted to have mild intermittent generalized slowing suggestive of mild encephalopathy. No foci for seizures noted. LDL is 126. Urine was negative for infection. Patient's blood pressure medication switch to metoprolol from lisinopril. Zocor since switched to lipitor Patient started on lipitor Patient follow with primary care physician and neurologist as outpatient. Vitals are stable Assessment and plan #1 transient global amnesia with metabolic encephalopathy. #2 asthma #3 HTN #4 hyperlipidemia. #5 migraine. Switch to metoprolol from lisinopril for migraine prophylaxis Disposition to home for self-care Patient Condition at Discharge: Good Plan - Discharge Summary New Discharge Prescriptions: New Metoprolol Succinate (ER) [Toprol XL] 25 mg PO DAILY@1999 #30 tab.er.24h Aspirin 81 mg PO DAILY chew Atorvastatin [Lipitor] 40 mg PO DAILY #30 tab Discontinued Simvastatin [Zocor] 20 mg PO DAILY Beclomethasone Dipropionate [Qvar 80 mcg/puff] 1 puff INHALATION BID PRN PRN Reason: Shortness Of Breath lisinopriL [Prinivil] 20 mg PO DAILY Discharge Medication List Aspirin 81 mg PO DAILY chew 03/31/21 [Rx] Atorvastatin [Lipitor] 40 mg PO DAILY #30 tab 03/31/21 [Rx] Metoprolol Succinate (ER) [Toprol XL] 25 mg PO DAILY@1999 #30 tab.er.24h 03/31/21 [Rx] Follow up Appointment(s)/Referral(s): Otto Rivas MD [REFERRING] - 04/21/21 11:00 am Jus Unger MD [Primary Care Provider] - 04/04/21 2:45 pm Patient Instructions/Handouts: Ischemic Stroke (DC) Discharge Disposition: HOME SELF-CARE
[2021-04-11 16:17] LABS: Nicotinamide 30 ng/mL; Nicotinic Acid None Detected; Nicotinuric Acid None Detected
== END 2021-03-31 14:14 | disposition home or self-care (01) ==
LOC: EC 10:38 → INTOOBSV 13:40 → 3SCARD 13:40 → UNDODISIN 03-31 14:14
PROVIDERS: ADMIT Internal Medicine; ATTEND Internal Medicine
PROC: B246ZZ4 Ultrasonography of Right and Left Heart, Transesophageal (ICD-10-PCS; principal; 2021-03-31 09:00)
DX: G45.4 Transient global amnesia (principal); G93.41 Metabolic encephalopathy; E53.8 Deficiency of other specified B group vitamins; G43.909 Migraine, unspecified, not intractable, without status migrainosus; J45.909 Unspecified asthma, uncomplicated; I10 Essential (primary) hypertension; E78.5 Hyperlipidemia, unspecified; H93.19 Tinnitus, unspecified ear; I45.10 Unspecified right bundle-branch block; I67.82 Cerebral ischemia; R00.0 Tachycardia, unspecified; R00.1 Bradycardia, unspecified; Z79.899 Other long term (current) drug therapy; Z88.0 Allergy status to penicillin; Z88.8 Allergy status to other drugs, medicaments and biological substances; Z86.010 Personal history of colon polyps; Z87.19 Personal history of other diseases of the digestive system; Z98.890 Other specified postprocedural states; Z80.6 Family history of leukemia; Z80.3 Family history of malignant neoplasm of breast; Z84.1 Family history of disorders of kidney and ureter; Z82.0 Family history of epilepsy and other diseases of the nervous system
CPT/HCPCS: 96372; 96360; 96361; 99291; 36415; 95816; 93005; 93312; 93320; 93306; 93325; 97161; 97165; 84591; 84207; 83921; 84425; 80061; 80053; 82607; 82746; 84484; 85025; 85610; 85730; 81003; 83036; 71046; 70496; 70450; 70498; 70553; G0378 ×3; J2250; J3420 ×2; J3010; Q9967; A9585

== ENCOUNTER → 2022-05-30 | Outpatient (CLI) | payer BC ==
--- NOTE | 2022-05-31 07:49 | US ---
EXAMINATION TYPE: US kidneys/renal and bladder DATE OF EXAM: 05/30/2022 COMPARISON: NONE CLINICAL HISTORY: 62-year-old male N20.0 KIDNEY STONE. Occasional left flank pain x 1 year, 1 episode of hematuria 1 year ago TECHNIQUE: Multiple sonographic images of the kidneys and bladder are obtained. FINDINGS: EXAM MEASUREMENTS: Right Kidney: 11.0 x 6.0 x 6.1 cm Left Kidney: 10.7 x 6.3 x 5.3 cm Right Kidney: No hydronephrosis or masses seen Left Kidney: 2 stone seen with largest measuring 1.2cm in the central portion of the upper to mid keshav e. No hydronephrosis. Bladder: Partially distended bladder shows no gross abnormality. Bilateral Jets seen: right jet seen, left jet not seen. IMPRESSION: 1. 2 calculi within the left kidney, largest located centrally measuring 1.2 cm. If this is not withi n the renal collecting system, it may pass into the collecting system in the near future. No hydronep hrosis at this time. 2. The left ureteral jet is not seen during the course of the exam.
== END | disposition home or self-care (01) ==
LOC: RADUSWWP 16:11
PROVIDERS: ATTEND Internal Medicine Geriatric Medicine
DX: N20.0 Calculus of kidney (principal)
CPT/HCPCS: 76770

== ENCOUNTER → 2023-04-10 | Outpatient (CLI) | payer BC ==
[2023-04-10 15:19] LABS: Basophils % (A) 1 %; Eosinophils # (A) 0.2 k/uL (0-0.7); Eosinophils % (A) 3 %; HCT 48.6 % (39.0-53.0); HGB 15.9 gm/dL (13.0-17.5); Lymphocytes # (A) 1.9 k/uL (1.0-4.8); Lymphocytes % (A) 25 %; MCH 30.3 pg (25.0-35.0); MCHC 32.6 g/dL (31.0-37.0); MCV 92.8 fL (80.0-100.0); Mean Platelet Volume 7.4; Monocytes # (A) 0.6 k/uL (0-1.0); Monocytes % (A) 8 %; Neutrophils # (A) 4.6 k/uL (1.3-7.7); Neutrophils % (A) 62 %; Platelet Count 231 k/uL (150-450); RBC 5.24 m/uL (4.30-5.90); RDW 12.6 % (11.5-15.5); WBC 7.5 k/uL (3.8-10.6)
[2023-04-10 20:58] LABS: ALT 45 U/L (4-49); AST 33 U/L (17-59); African American GFR (CKD) >90 (>60 ml/min/1.73 sqM); Albumin 4.3 g/dL (3.5-5.0); Albumin/Globulin Ratio 1.3; Alkaline Phosphatase 95 U/L (38-126); Anion Gap 6 mmol/L; Blood Urea Nitrogen 14 mg/dL (9-20); Calcium 11.1 mg/dL (8.4-10.2); Carbon Dioxide 28 mmol/L (22-30); Chloride 106 mmol/L (98-107); Globulin 3.2 g/dL; Glucose 92 mg/dL (74-99); Non-African American GFR(CKD) 78 (>60 ml/min/1.73 sqM); Potassium 4.3 mmol/L (3.5-5.1); Sodium 140 mmol/L (137-145); Total Bilirubin 0.9 mg/dL (0.2-1.3); Total Protein 7.5 g/dL (6.3-8.2)
[2023-04-10 21:14] LABS: T4, Free (Free Thyroxine) 1.08 ng/dL (0.78-2.19)
[2023-04-11 03:31] LABS: Chol/HDL Ratio 2.86 Ratio; LDL Cholesterol,Calculated 64.9 mg/dL (0.0-131.0)
== END | disposition home or self-care (01) ==
LOC: LABWHC1 14:25
PROVIDERS: ATTEND Nurse Practitioner Family
DX: E78.2 Mixed hyperlipidemia (principal); N18.2 Chronic kidney disease, stage 2 (mild); N40.1 Benign prostatic hyperplasia with lower urinary tract symptoms; E07.9 Disorder of thyroid, unspecified; E83.52 Hypercalcemia; R73.9 Hyperglycemia, unspecified
CPT/HCPCS: 36415; 80053; 80061; 82607; 83036; 83970; 84153; 84439; 84443; 85025

== ENCOUNTER → 2023-05-08 | Outpatient (CLI) | payer BC ==
--- NOTE | 2023-05-08 16:04 | US ---
EXAMINATION TYPE: US kidneys/renal and bladder DATE OF EXAM: 05/08/2023 COMPARISON: 05/30/22 CLINICAL INDICATION: Male, 63 years old with history of N18.2 CHRONIC KIDNEY DISEASE, STAGE 2 (MILD); EXAM MEASUREMENTS: Right Kidney: 10.4x5.6x5.5 cm Left Kidney: 11.2x7.1x5.2 cm Right Kidney: small 0.4cm, echogenic shadowing focus, other echogenic linear structures notes ?calcif ied vessels? Left Kidney: 1.2cm and 0.5cm echogenic shadowing foci again seen Bladder: wnl Bilateral Jets seen: Yes There is no evidence for hydronephrosis at this point in time. Bilateral nonobstructive renal calculi . No masses are identified. Corticomedullary differentiation is maintained bilaterally. The urinary bladder is anechoic. Bilateral ureteral jets are seen. IMPRESSION: 1. No hydronephrosis. 2. Nonobstructive bilateral calculi.
== END | disposition home or self-care (01) ==
LOC: RADUSWWP 15:25
PROVIDERS: ATTEND Internal Medicine Geriatric Medicine
DX: N20.0 Calculus of kidney (principal); N18.2 Chronic kidney disease, stage 2 (mild)
CPT/HCPCS: 76770

== ENCOUNTER → 2023-09-11 | Outpatient (CLI) | payer BC ==
[2023-09-12 02:46] LABS: ALT 47 U/L (10-49); AST 29 U/L (14-35); Albumin 4.6 g/dL (3.8-4.9); Alkaline Phosphatase 110 U/L (41-126); Blood Urea Nitrogen 13.9 mg/dL (9.0-27.0); Calcium 11.6 mg/dL (8.7-10.3); Carbon Dioxide 26.5 mmol/L (21.6-31.8); Chloride 105 mmol/L (96-109); Chol/HDL Ratio 3.33 Ratio; Globulin 2.7 g/dL (1.6-3.3); Glucose 91 mg/dL (70-110); LDL Cholesterol,Calculated 83.8 mg/dL (0.0-131.0); Potassium 4.3 mmol/L (3.5-5.5); Sodium 141 mmol/L (135-145); Total Bilirubin 0.7 mg/dL (0.3-1.2); Total Protein 7.3 g/dL (6.2-8.2); Uric Acid 5.7 mg/dL (3.7-8.7)
[2023-09-12 02:48] LABS: Basophils # (A) 0.07 X 10*3/uL (0.00-0.10); Eosinophils # (A) 0.22 X 10*3/uL (0.04-0.35); HCT 48.8 % (39.6-50.0); HGB 15.8 g/dL (13.0-17.0); Lymphocytes # (A) 1.75 X 10*3/uL (0.90-5.00); Lymphocytes % (A) 23.9 %; MCHC 32.4 g/dL (32.0-37.0); MCV 92.6 FL (80.0-97.0); Mean Platelet Volume 9.6 FL (9.5-12.2); Monocytes # (A) 0.62 X 10*3/uL (0.20-1.00); Monocytes % (A) 8.5 %; NRBC Per 100 WBC 0 X 10*3/uL (0.00-0.01); Neutrophils % (A) 62.9 %; Platelet Count 265 X 10*3/uL (140-440); RBC 5.27 X 10*6/uL (4.40-5.60); RDW 12.9 % (11.5-14.5); WBC 7.31 X 10*3/uL (4.50-10.00)
== END | disposition home or self-care (01) ==
LOC: LABWHC1 14:59
PROVIDERS: ATTEND Internal Medicine Geriatric Medicine
DX: E78.2 Mixed hyperlipidemia (principal); N18.2 Chronic kidney disease, stage 2 (mild); R73.9 Hyperglycemia, unspecified
CPT/HCPCS: 36415; 80053; 80061; 83036; 84550; 85025

== ENCOUNTER → 2023-09-25 | Outpatient (CLI) | payer BC ==
--- NOTE | 2023-09-25 22:04 | XR ---
EXAMINATION TYPE: XR KUB DATE OF EXAM: 09/25/2023 Comparison: None Clinical History: 63-year-old male N20.0 CALCULUS OF KIDNEY Findings: Moderate stool burden. Dominant 1.4 cm left renal calculus. Multiple smaller calculi are present on t he left. Bowel content largely obscures the right renal shadow. The central prosthetic calcifications noted. No dilated small bowel loops. Lung bases are clear. Impression: 1. Bowel content largely of skiers the right renal shadow. 2. Left sided nephrolithiasis with stones measuring up to 1.4 cm.
== END | disposition home or self-care (01) ==
LOC: RADXRMAIN 14:24
PROVIDERS: ATTEND Urology
DX: N20.0 Calculus of kidney (principal)
CPT/HCPCS: 74018

== ENCOUNTER → 2024-05-18 | Outpatient (CLI) | payer BC ==
[2024-05-18 20:25] LABS: Appearance,Urine Clear (Clear); Bilirubin,Urine Negative (Negative); Blood,Urine Negative (Negative); Color,Urine Yellow (Yellow); Ketones,Urine Negative (Negative); Nitrite,Urine Negative (Negative); Specific Gravity,Urine 1.024 (1.001-1.030); Urobilinogen,Urine 0.2 E.U./DL
[2024-05-18 20:34] LABS: Bacteria,Urine None Seen (None Seen)
[2024-05-18 20:52] LABS: Basophils # (A) 0.06 X 10*3/uL (0.00-0.10); Basophils % (A) 0.9 %; Eosinophils # (A) 0.26 X 10*3/uL (0.04-0.35); Eosinophils % (A) 3.7 %; HGB 15.6 g/dL (13.0-17.0); Lymphocytes % (A) 18.7 %; MCH 29.7 pg (27.0-32.0); MCHC 31.8 g/dL (32.0-37.0); MCV 93.3 FL (80.0-97.0); Mean Platelet Volume 9.8 FL (9.5-12.2); Monocytes # (A) 0.68 X 10*3/uL (0.20-1.00); Monocytes % (A) 9.8 %; NRBC Per 100 WBC 0 X 10*3/uL (0.00-0.01); Neutrophils # (A) 4.63 X 10*3/uL (1.80-7.70); Neutrophils % (A) 66.5 %; Platelet Count 257 X 10*3/uL (140-440); RBC 5.25 X 10*6/uL (4.40-5.60); RDW 12.7 % (11.5-14.5); WBC 6.96 X 10*3/uL (4.50-10.00)
[2024-05-18 22:10] LABS: BUN/Creat Ratio 10.73 Ratio (12.00-20.00); Blood Urea Nitrogen 11.8 mg/dL (9.0-27.0); Calcium 9.3 mg/dL (8.7-10.3); Chloride 106 mmol/L (96-109); Glucose 93 mg/dL (70-110); Potassium 4.3 mmol/L (3.5-5.5); Sodium 143 mmol/L (135-145)
== END | disposition home or self-care (01) ==
LOC: LABPAT 13:27
PROVIDERS: ATTEND Urology
DX: Z01.812 Encounter for preprocedural laboratory examination (principal); N20.0 Calculus of kidney
CPT/HCPCS: 36415; 80048; 81001; 82306; 83970; 85025; 87086

== ENCOUNTER 2024-05-26 07:11 | Day surgery (SDC) | payer BC ==
--- NOTE | 2024-05-19 14:13 | P.HPIHPCON ---
History of Present Illness H&P Date: 05/19/24 Chief Complaint: Left renal stones This is a 64-year-old male with history of hyperparathyroidism status post parathyroidectomy, with normalization of the calcium and PTH following his surgery. He does have extensive history of left-sided renal stones including a 1.4 cm left-sided renal stone. Option of observation versus ESWL versus ureteroscopy with holmium laser was discussed risk and benefit of each approach were discussed with details. He agreed to proceed with left-sided ureteroscopy with holmium laser. Aware the risk we could continue to bleeding, infection, injury to the ureter Consent for Procedure: I have explained the operation/procedure to the patient, including the risks, benefits, side effects, alternative therapies (including not receiving the proposed treatment or service), the likelihood of the patient achieving his/her goals, and potential recuperation problems for the procedure/sedation/analgesia, as well as any blood products, if indicated. I also explained to the patient the risks, benefits and side effects of the alternatives, as well as the risks related to not receiving the proposed procedure, care, treatment, or services. Past Medical History Past Medical History: Asthma, Hyperlipidemia, Hypertension Additional Past Medical History / Comment(s): STATES COLITIS WITH AUGMENTIN, HX OF COLON POLYPS., RINGING IN EARS. History of Any Multi-Drug Resistant Organisms: None Reported Past Surgical History: Adenoidectomy, Heart Catheterization, Tonsillectomy Additional Past Surgical History / Comment(s): T & A ( A CHILD), COLONOSCOPY Past Anesthesia/Blood Transfusion Reactions: No Reported Reaction, Motion Sickness Additional Past Anesthesia/Blood Transfusion Reaction / Comment(s): STATES HE WOKE UP DURING TONISLLECTOMY . Past Psychological History: No Psychological Hx Reported Smoking Status: Never smoker Past Alcohol Use History: Occasional Past Drug Use History: None Reported - Past Family History Mother Family Medical History: Cancer Sister(s) Family Medical History: Cancer Additional Family Medical History / Comment(s): LEUKEMIA Medications and Allergies Home Medications Medication Instructions Recorded Confirmed Type Aspirin 81 mg PO DAILY chew 03/31/21 Rx Atorvastatin [Lipitor] 40 mg PO DAILY #30 tab 03/31/21 Rx Metoprolol Succinate (ER) [Toprol 25 mg PO DAILY@1999 #30 tab.er.24h 03/31/21 Rx XL] Allergies Allergy/AdvReac Type Severity Reaction Status Date / Time amoxicillin trihydrate AdvReac Unknown COLITIS Verified 03/29/21 11:39 [From Augmentin] potassium clavulanate AdvReac Unknown COLITIS Verified 03/29/21 11:39 [From Augmentin] Surgical - Exam - General no distress, no pain - Eyes normal ocular movement, no pale - ENT normal nares, normal mucosa - Respiratory normal expansion, normal respiratory effort - Abdomen Abdomen: soft, non tender - Psychiatric oriented to time, oriented to person, oriented to place Assessment and Plan Assessment: OR for left-sided ureteroscopy, holmium laser lithotripsy, stone basket and stent insertion
[2024-05-22 14:17] VITALS: BMI 29.0
[~2024-05-26 07:11] MED LIST: HYDROmorphone 0.5 MG/0.5 ML SYRINGE IVP PRN; fentaNYL (PF) 50 MCG/ML 2 ML AMP IV PRN
--- NOTE | 2024-05-26 07:43 | XR ---
EXAMINATION TYPE: XR KUB DATE OF EXAM: 05/26/2024 HISTORY: Pain Comparison: None.Single KUB is submitted for interpretation. Findings: Right renal calculi: None Visualized. Right ureteral calculi: None Visualized. Left renal calculi: 1.6 cm calculus left kidney. Left ureteral calculi: None Visualized. Pelvic calcifications: None Visualized. Bowel gas pattern is unremarkable. No free air. No mass effects. IMPRESSION: 1. 1.6 cm calculus left kidney. [facility], , 05/26/2024 7:41 AM
[2024-05-26 08:19] VITALS: RESP 16
[2024-05-26] MEDS: LACTATED RINGERS 1,000 ML IV SCH (08:21)
[2024-05-26] MEDS: ONDANSETRON 4 MG/2 ML VIAL IVP ONE (08:21)
[2024-05-26] MEDS: DEXAMETHASONE SOD PHOSPHATE 4 MG/ML 1 ML VIAL IV ONE (08:21)
[2024-05-26] MEDS: IV FLUID CONTINUATION 1,000 ML IV ONE (08:23)
[2024-05-26] MEDS: LIDOCAINE 1% (10MG/ML) FOR IV START INTRADERMA PRN (08:24)
[2024-05-26] MEDS ORDERED: fentaNYL (PF) 50 MCG/ML 2 ML AMP ONE (08:28)
[2024-05-26] MEDS ORDERED: PROPOFOL 10 MG/ML 20 ML VIAL IV ONE (08:28)
[2024-05-26] MEDS ORDERED: ePHEDrine 50 MG/ML 1 ML VIAL ONE (08:28)
[2024-05-26] MEDS ORDERED: MIDAZOLAM 2 MG/2 ML VIAL ONE (08:28)
[2024-05-26] MEDS ORDERED: LIDOCAINE 1% INJ 10MG/ML (20 ML MDV) ONE (08:28)
[2024-05-26] MEDS ORDERED: SUCCINYLCHOLINE CHLORIDE 200 MG/10 ML VIAL IV ONE (08:28)
[2024-05-26] MEDS: CIPROFLOXACIN/DEXTROSE PMX 400 MG in DEXTROSE/WATER 1 200ML.BAG IVPB PRN (08:33)
--- NOTE | 2024-05-26 09:44 | FL ---
Fluoroscopy History: Cysto for left kidney stone Cysto for LT sided kidney stone LC 9 sec fluoro time 2.8930 DAP [facility], , 05/26/2024 9:41 AM
[2024-05-26 09:45] VITALS: TEMP 97
--- NOTE | 2024-05-26 10:05 | P.OP ---
Date of Procedure: 05/26/24 Preoperative Diagnosis: Left renal stone Postoperative Diagnosis: Same Procedure(s) Performed: Cystoscopy, left ureteroscopy, holmium laser lithotripsy, stone basketing and stent insertion Implants: 6 [place]ian by 26 cm stent in the left ureter Anesthesia: FELIPE Surgeon: Luca Connolly Estimated Blood Loss (ml): 5 Pathology: other (Left renal stone) Condition: stable Disposition: PACU Indications for Procedure: This is a 64-year-old male with history of hyperparathyroidism status post parathyroidectomy, with normalization of the calcium and PTH following his surgery. He does have extensive history of left-sided renal stones including a 1.4 cm left-sided renal stone. Option of observation versus ESWL versus ureteroscopy with holmium laser was discussed risk and benefit of each approach were discussed with details. He agreed to proceed with left-sided ureteroscopy with holmium laser. Aware the risk we could continue to bleeding, infection, injury to the ureter Operative Findings: Large stone in the left upper pole, multiple small stones throughout the kidney Description of Procedure: Patient brought the operating room, general anesthesia was induced. He was prepped and draped in sterile fashion placed in dorsolithotomy position. Cystoscope fitted with a 21 [place] sheath was inserted per urethra, cystoscopy was performed showed normality within the bladder, of note the prostate slightly enlarged but nonocclusive. Attention was then carried to the left ureteral orifice which was intubated with a sensor wire, the wire was advanced under fluoroscopy into the kidney. Next an [address] [place] access sheath was passed over the wire and into the proximal ureter. Next a flexible ureteroscope was inserted through the access sheath, renoscopy was performed showed a large stone in the upper pole, and there was also multiple small stones throughout the kidney, using the holmium laser the stones were dusted, any sizable fragments were removed using the stone basket, repeat renoscopy showed no sizable fragments or injury to the kidney, on fluoroscopy there was no radiopaque densities visualized. At this time pullback ureteroscopy was performed showed no injury to the ureter or any ureteral stones, as ureteroscope was withdrawn a sensor wire was advanced through. Next a ureteral stent was passed over the wire, the proximal curl was resides on fluoroscopy and the distal curl was visualized using the cystoscope. The bladder was emptied at the end of the case. Patient tolerated procedure was taken to recovery in stable condition.
[2024-05-26 11:21] VITALS: BP 166/77; PULSE 76
== END 2024-05-26 11:37 | disposition home or self-care (01) ==
LOC: OR 07:11
PROVIDERS: ATTEND Urology
CPT/HCPCS: 74018; 82365

== ENCOUNTER → 2024-07-18 | Outpatient (CLI) | payer BC ==
[2024-07-19 07:18] LABS: Blood Urea Nitrogen 13.4 mg/dL (9.0-27.0); Carbon Dioxide 26.9 mmol/L (21.6-31.8); Chloride 107 mmol/L (96-109); Chol/HDL Ratio 3.23 Ratio; Glucose 99 mg/dL (70-110); Potassium 4.5 mmol/L (3.5-5.5); Sodium 143 mmol/L (135-145); Uric Acid 4.7 mg/dL (3.7-8.7)
[2024-07-19 07:19] LABS: ALT 36 U/L (10-49); AST 26 U/L (14-35); Albumin 4.3 g/dL (3.8-4.9); Albumin/Globulin Ratio 1.59 Ratio (1.60-3.17); Alkaline Phosphatase 105 U/L (41-126); Calcium 9.1 mg/dL (8.7-10.3); Globulin 2.7 g/dL (1.6-3.3); Total Bilirubin 0.7 mg/dL (0.3-1.2)
[2024-07-19 07:47] LABS: Basophils # (A) 0.05 X 10*3/uL (0.00-0.10); Basophils % (A) 0.7 %; Eosinophils # (A) 0.27 X 10*3/uL (0.04-0.35); Eosinophils % (A) 3.9 %; HCT 47.7 % (39.6-50.0); HGB 15.3 g/dL (13.0-17.0); Lymphocytes % (A) 18.9 %; MCH 29.9 pg (27.0-32.0); MCHC 32.1 g/dL (32.0-37.0); MCV 93.2 FL (80.0-97.0); Mean Platelet Volume 10.1 FL (9.5-12.2); Monocytes # (A) 0.69 X 10*3/uL (0.20-1.00); NRBC Per 100 WBC 0 X 10*3/uL (0.00-0.01); Neutrophils # (A) 4.54 X 10*3/uL (1.80-7.70); Neutrophils % (A) 66.1 %; Platelet Count 310 X 10*3/uL (140-440); RBC 5.12 X 10*6/uL (4.40-5.60); RDW 12.5 % (11.5-14.5); WBC 6.88 X 10*3/uL (4.50-10.00)
== END | disposition home or self-care (01) ==
LOC: LABWHC1 11:27
PROVIDERS: ATTEND Internal Medicine Geriatric Medicine
DX: E11.65 Type 2 diabetes mellitus with hyperglycemia (principal); E11.22 Type 2 diabetes mellitus with diabetic chronic kidney disease; E21.3 Hyperparathyroidism, unspecified; N18.2 Chronic kidney disease, stage 2 (mild)
CPT/HCPCS: 36415; 80053; 80061; 82306; 83036; 83970; 84443; 84550; 85025

== ENCOUNTER → 2025-02-24 | Outpatient (CLI) | payer BC, MEDICARE ==
[2025-02-24 19:39] LABS: ALT 41 U/L (10-49); AST 34 U/L (14-35); Albumin 4.4 g/dL (3.8-4.9); Albumin/Globulin Ratio 1.52 Ratio (1.60-3.17); Alkaline Phosphatase 88 U/L (41-126); Anion Gap 13.10 mmol/L (4.00-12.00); BUN/Creat Ratio 13.00 Ratio (12.00-20.00); Blood Urea Nitrogen 11.7 mg/dL (9.0-27.0); Calcium 9.4 mg/dL (8.7-10.3); Carbon Dioxide 23.9 mmol/L (21.6-31.8); Chloride 107 mmol/L (96-109); Cholesterol 173.00 mg/dL (0.00-200.00); Globulin 2.9 g/dL (1.6-3.3); Glucose 92 mg/dL (70-110); HDL Cholesterol 47.20 mg/dL (40.00-60.00); LDL Cholesterol,Calculated 101.0 mg/dL (0.0-131.0); Potassium 4.2 mmol/L (3.5-5.5); Prostate Specific Antigen 3.25 ng/mL (0.000-4.500); Sodium 144 mmol/L (135-145); Total Protein 7.3 g/dL (6.2-8.2); Triglycerides 124.00 mg/dL (0.00-149.00); VLDL Calculation 24.80 mg/dL (5.00-40.00)
[2025-02-24 19:58] LABS: Basophils # (A) 0.06 X 10*3/uL (0.00-0.10); Basophils % (A) 0.9 %; Eosinophils # (A) 0.26 X 10*3/uL (0.04-0.35); Eosinophils % (A) 3.8 %; HCT 47.2 % (39.6-50.0); HGB 15.3 g/dL (13.0-17.0); Immature Grans, Automated 0.60 %; Lymphocytes # (A) 1.24 X 10*3/uL (0.90-5.00); Lymphocytes % (A) 18.1 %; MCH 30.1 pg (27.0-32.0); MCHC 32.4 g/dL (32.0-37.0); MCV 92.7 FL (80.0-97.0); Monocytes # (A) 0.60 X 10*3/uL (0.20-1.00); Monocytes % (A) 8.8 %; NRBC Per 100 WBC 0 X 10*3/uL (0.00-0.01); Neutrophils # (A) 4.65 X 10*3/uL (1.80-7.70); Neutrophils % (A) 67.8 %; Platelet Count 249 X 10*3/uL (140-440); RBC 5.09 X 10*6/uL (4.40-5.60); RDW 12.7 % (11.5-14.5); WBC 6.85 X 10*3/uL (4.50-10.00)
== END | disposition home or self-care (01) ==
LOC: RADXRMAIN 14:06
PROVIDERS: ATTEND Internal Medicine Geriatric Medicine
DX: Z00.00 Encounter for general adult medical examination without abnormal findings (principal); E11.65 Type 2 diabetes mellitus with hyperglycemia; E78.2 Mixed hyperlipidemia; N40.1 Benign prostatic hyperplasia with lower urinary tract symptoms; E21.3 Hyperparathyroidism, unspecified; N13.8 Other obstructive and reflux uropathy
CPT/HCPCS: 80053; 80061; 83036; 83970; 84153; 84443; 85025